=== PATIENT | female | born 1995 | race Caucasian/White ===

== ENCOUNTER 2023-09-18 11:31 | Emergency (ER) | payer MEDICAID, SELFPAY ==
[2023-09-18 12:10] VITALS: BP 114/81; PULSE 97; RESP 18; TEMP 36.4; O2SAT 97; BMI 26.1
--- NOTE | 2023-09-18 12:11 | EXP.UTC ---
Discharge Plan Disposition Patient Disposition: Home, Self-Care Condition: Good Prescriptions Prescriptions: New bzabtkzjsgfmtff-heuuheegu-FY [Bromfed DM] 2-30-10 mg/5 mL Syrup 5 ml PO Q6H PRN (Reason: Cough) Qty: 240 0RF oseltamivir [Tamiflu] 75 mg capsule 75 mg PO BID Qty: 10 0RF ondansetron 4 mg Tablet,Disintegrating 4 mg PO Q8H PRN (Reason: Nausea) Qty: 12 0RF Referrals Follow up/Referrals: Provider,Referral, MD [Primary Care Provider] - See instructions Activity Restrictions/Add. Instructions Additional Instructions/Restrictions: Drink plenty of fluids. Take tylenol or ibuprofen for pain or fever. Take the medications as directed. Follow up with your regular doctor. GO TO THE ER FOR ANY WORSENING SYMPTOMS Clinical Impressions Clinical Impression: Acute viral syndrome, Exposure to influenza Instructions Patient Instructions: DI for Influenza -- Adult, Oseltamivir Discharge ED Provider: Seymour Diaz [facility] General Stated complaint: nausea, headache, cough Time Seen by Provider: 09/18/23 12:11 History of Present Illness Provider Complaint: She states that she has had fever, chills, malaise, body aches, dry cough, and a headache for the past 1 day. Her and her mother both have had influenza over the past 5 days. Related Data Previous Rx's Medication Instructions Recorded rclserellnbmazg-warvvgwbpktetvu-NR 5 ml PO Q6H PRN Cough #240 mL 09/18/23 2 mg-30 mg-10 mg/5 mL oral syrup (Bromfed DM) ondansetron 4 mg disintegrating 4 mg PO Q8H PRN Nausea #12 tabs 09/18/23 tablet oseltamivir 75 mg capsule (Tamiflu) 75 mg PO BID #10 caps 09/18/23 Allergies Allergy/AdvReac Type Severity Reaction Status Date / Time No Known Allergies Allergy Verified 09/18/23 12:23 [facility] Disclaimer: The information contained in this section may have been updated after the patient was seen, as this information can be updated by other users. Social History Smoking Status: Never smoker alcohol intake: never current occupational status: employed Travel in the last 8 weeks: None ROS Obtained: Yes All systems reviewed & no additional complaints except as documented Constitutional Constitutional: Reports chills and Reports fever(s) Eyes Eyes: Denies eye discharge ENT Ears, Nose, Mouth, and Throat: Reports as per HPI Cardiovascular Cardiovascular: Denies chest pain Respiratory Respiratory: Denies chest congestion and Reports cough Gastrointestinal Gastrointestingal: Reports nausea; Denies abdominal pain, constipation, cramping, diarrhea or vomiting Musculoskeletal Musculoskeletal: Denies arthralgias Integumentary/Breasts Skin/Breast: Denies rash Neurologic Neurologic: Denies paresthesias Physical Exam General General appearance: alert and in no apparent distress Eye Eye exam: Present normal appearance, PERRL and EOMI ENT ENT exam: Present mucous membranes moist and normal external ear exam Expanded ENT Exam External ear exam: Present normal external inspection TM/Canal exam: Bilateral TM: erythema and bulging Nose exam: Absent sinus tenderness Nasal speculum exam: Bilateral: normal Mouth exam: Present normal external inspection; Absent drooling Teeth exam: Present normal inspection Throat exam: Present tonsillar erythema and tonsillomegaly Neck Neck exam: Present normal inspection, full ROM and trachea midline; Absent tenderness, lymphadenopathy or thyromegaly Chest Chest inspection: Present normal inspection and symmetric chest wall rise; Absent tenderness or rash Respiratory Respiratory exam: Present normal lung sounds bilaterally; Absent respiratory distress, wheezes, stridor or accessory muscle use Cardiovascular Cardiovascular exam: Present regular rate, normal rhythm and normal heart sounds Abdominal Exam Abdominal exam: Present soft; Absent distention, tenderness, guarding, rebound or rigidity Extremities Exam Extremities exam: Present normal inspection, full ROM and normal capillary refill; Absent tenderness or calf tenderness Back Exam Back exam: Present normal inspection and full ROM; Absent tenderness Neurological Exam Neurological exam: Present alert and oriented X3 Psychiatric Psychiatric exam: Present normal affect and normal mood Skin Skin exam: Present warm, dry, intact and normal color Lymphatic Lymphatic Findings: no adenopathy Medical Decision Making Medical Records Medical records reviewed: No I reviewed the patient's medical records. Elias Inquiry Pt receiving controlled substance: No Lab Data Lab results reviewed: Yes I reviewed the patient's lab results.
[2023-09-18 12:37] LABS: UTC Influenza A Antigen Negative (Negative); UTC Influenza B Antigen Negative (Negative)
[2023-09-18 12:51] VITALS: BP 114/81; PULSE 97; RESP 18; TEMP 36.4; O2SAT 97
== END 2023-09-18 12:51 | disposition home or self-care (01) ==
PROVIDERS: Emergency Provider Nurse Practitioner Family
DX: R51.9 Headache, unspecified (principal); R50.9 Fever, unspecified; R05.9 Cough, unspecified; R11.0 Nausea; M79.18 Myalgia, other site; B34.9 Viral infection, unspecified; Z20.828 Contact with and (suspected) exposure to other viral communicable diseases
CPT/HCPCS: 87804; 99204; 99212; G0463

== ENCOUNTER 2024-07-21 09:49 | Emergency (ER) | payer MEDICAID, SELFPAY ==
[2024-07-21 10:19] VITALS: BP 119/70; PULSE 95; RESP 18; TEMP 36.9; O2SAT 98; BMI 28.9
--- NOTE | 2024-07-21 10:23 | EXP.UTC ---
Discharge Plan Disposition Patient Disposition: Home, Self-Care Condition: Good Prescriptions Prescriptions: No Action ibcoxpacffpnlet-tgqdhpwog-WU [Bromfed DM] 2-30-10 mg/5 mL Syrup 5 ml PO Q6H PRN (Reason: Cough) Qty: 240 0RF oseltamivir [Tamiflu] 75 mg capsule 75 mg PO BID Qty: 10 0RF ondansetron 4 mg Tablet,Disintegrating 4 mg PO Q8H PRN (Reason: Nausea) Qty: 12 0RF Referrals Follow up/Referrals: Provider,Referral, MD [Primary Care Provider] - See instructions Activity Restrictions/Add. Instructions Additional Instructions/Restrictions: *Monitor Temp, Over the counter Motrin or Tylenol as directed/as needed Tylenol every 4 hours and Motrin every 6 hours (as long as your family doctor has told you that you can take it) for fever or pain. and straight to ER if unable to lower temp less than 101.0 after medication given *Warm salt water gargles may help to soothe the throat *Throat Lozenges? *Warm fluids like tea with honey may help to soothe the throat? *Sleep elevated *Humidifier/Vaporizer Follow up IMMEDIATELY for new or worsening symptoms or no Noticeable improvement over the next 48-72 hours. 911 for difficulty breathing or swallowing You were tested for today for COVID19 your test result should be back in the next 24 hours, you may check your results on the [facility] Clinical Impressions Clinical Impression: Viral syndrome Instructions Patient Instructions: DI for COVID-19 (Suspected or Confirmed ), DI for Viral Syndrome Print Language Print Language: Moroccan Discharge ED Provider: Ester Alberto [facility] [place] General Stated complaint: congestion, covid test Mode of Arrival: Ambulatory Source of Information: Patient Time Seen by Provider: 07/21/24 10:23 Description of Symptoms (Recalled from Triage Doc. by RN): COVID TESTING HEENT Symptoms (Recalled from RN notes): No Resp Symptoms (Recalled from RN notes): No Skin Symptoms (Recalled from RN notes): No MS Symptoms (Recalled from RN notes): No Functional Status (Recalled from RN notes): WNL History of Present Illness Provider Complaint: Patient states that she was around a family member on giving that has since tested positive for COVID States that she started feeling bad with nasal congestion and wants to get tested Related Data Previous Rx's ?Medication ?Instructions ?Recorded lagqqrbeftlbxgq-ljrvndeiwgdmatl-KL 5 ml PO Q6H PRN Cough #240 mL 09/18/23 2 mg-30 mg-10 mg/5 mL oral syrup (Bromfed DM) ondansetron 4 mg disintegrating 4 mg PO Q8H PRN Nausea #12 tabs 09/18/23 tablet oseltamivir 75 mg capsule (Tamiflu) 75 mg PO BID #10 caps 09/18/23 Allergies Allergy/AdvReac Type Severity Reaction Status Date / Time No Known Allergies Allergy Verified 09/18/23 12:23 Worker's Comp Is this a Worker's Comp case?: No [facility] Disclaimer: The information contained in this section may have been updated after the patient was seen, as this information can be updated by other users. Social History (Updated 09/18/23 @ 12:53 by Seymour Diaz APRN) Smoking Status: Never smoker alcohol intake: never current occupational status: employed Travel in the last 8 weeks: None ROS Obtained: Yes All systems reviewed & no additional complaints except as documented and Yes Systems reviewed as appropriate & no additional complaints except as documented Constitutional Constitutional: Reports system reviewed and no additional complaints, except as documented and Reports as per HPI ENT Ears, Nose, Mouth, and Throat: Reports system reviewed and no additional complaints, except as documented, Reports as per HPI and Reports nasal congestion Cardiovascular Cardiovascular: Reports system reviewed and no additional complaints, except as documented and Reports as per HPI Respiratory Respiratory: Reports system reviewed and no additional complaints, except as documented and Reports as per HPI Gastrointestinal Gastrointestingal: Reports system reviewed and no additional complaints, except as documented and as per HPI Physical Exam General General appearance: alert and in no apparent distress ENT ENT exam: Present normal exam, mucous membranes moist and TM's normal bilaterally Expanded ENT Exam Nose exam: Present other (clear drainage) Respiratory Respiratory exam: Present normal lung sounds bilaterally; Absent respiratory distress or wheezes Cardiovascular Cardiovascular exam: Present regular rate, normal rhythm and normal heart sounds Abdominal Exam Abdominal exam: Present soft and normal bowel sounds; Absent distention or tenderness Neurological Exam Neurological exam: Present alert, oriented X3 and normal gait Medical Decision Making Medical Records Screening: Per USPSTF and CDC recommendations, given the prevalence of disease in our region, it is our hospital?s policy to screen for HIV and viral Hepatitis for all patients aged 18 and over and those with ongoing risk factors. Elias Inquiry Pt receiving controlled substance: No Elias was queried for this patient: No Vital Signs: 07/21/24 10:19 Temperature 98.5 F Temperature Source Oral Pulse Rate [Left Radial] 95 H Respiratory Rate 18 Blood Pressure [Left Arm] 119/70 Blood Pressure Mean [Left Arm] 86 02 Sat by Pulse Oximetry 98 Orders (Tests/Meds): ORDERS Category Date Time Status Covid-19 Nasal PCR ([facility]) Routine Lab 07/21/24 09:54 Received
[2024-07-21 10:26] VITALS: BP 119/70; PULSE 95; RESP 18; TEMP 36.9
== END 2024-07-21 10:36 | disposition home or self-care (01) ==
PROVIDERS: Emergency Provider Nurse Practitioner
DX: B34.9 Viral infection, unspecified (principal); R09.81 Nasal congestion; Z20.822 Contact with and (suspected) exposure to COVID-19
CPT/HCPCS: 87635; 99212; G0381

== ENCOUNTER 2025-02-23 13:58 | Emergency (ER) | payer MEDICAID, SELFPAY ==
[2025-02-23 14:08] VITALS: BP 117/76; PULSE 83; RESP 15; TEMP 37.4; O2SAT 99; BMI 31.8
[2025-02-23 14:08] LABS: Microscopic, Urine URINE MICROSCOPIC (MICROSCOPIC)
--- NOTE | 2025-02-23 14:11 | HMH.EDGENADL ---
Discharge Plan Disposition Patient Disposition: Home, Self-Care Prescriptions Prescriptions: New nitrofurantoin monohyd/m-cryst 100 mg capsule 100 mg PO BID 5 Days Qty: 10 0RF Rx Instructions: must administer with a meal/food No Action lwuxnhauqzcscfk-oyklyfisg-DO [Bromfed DM] 2-30-10 mg/5 mL Syrup 5 ml PO Q6H PRN (Reason: Cough) Qty: 240 0RF oseltamivir [Tamiflu] 75 mg capsule 75 mg PO BID Qty: 10 0RF ondansetron 4 mg Tablet,Disintegrating 4 mg PO Q8H PRN (Reason: Nausea) Qty: 12 0RF Referrals Follow up/Referrals: Provider,Referral, MD [Primary Care Provider, Medical] - See instructions Activity Restrictions/Add. Instructions Additional Instructions/Restrictions: Return to your primary care doctor or to the emergency department if you have persistent or worsening fevers or if you are not getting better after antibiotics. Clinical Impressions Clinical Impression: Urinary tract infection Instructions Patient Instructions: DI for Urinary Tract Infection (UTI), DI for Urinary Tract Infection in Children Print Language Print Language: Spanish Discharge ED Provider: Jacob Caballero General Adult HPI General Chief complaint: Urogenital-Female Stated complaint: UTI/Bladder Infection Symptoms Time Seen by Provider: 02/23/25 14:03 Mode of Arrival: Ambulatory Source of Information: Patient Description of Symptoms (Recalled from ER Triage Doc. by RN): pt presents to ED with c/o trouble peeing, burning and pain with urination. symptoms began saturday History of Present Illness HPI narrative: Patient is a 29-year-old female presenting today with what she believes is another urinary tract infection as she had similar symptoms almost 10 years ago. States she has some dysuria urgency and frequency. Denies any other symptoms including back pain fevers etc. No other significant past medical history no known allergies. Related Data Previous Rx's ?Medication ?Instructions ?Recorded dnaqyeercxyznws-lnfypfwcbgrukvl-RQ 5 ml PO Q6H PRN Cough #240 mL 09/18/23 2 mg-30 mg-10 mg/5 mL oral syrup (Bromfed DM) ondansetron 4 mg disintegrating 4 mg PO Q8H PRN Nausea #12 tabs 09/18/23 tablet oseltamivir 75 mg capsule (Tamiflu) 75 mg PO BID #10 caps 09/18/23 nitrofurantoin 100 mg PO BID 5 days #10 caps 02/23/25 monohydrate/macrocrystals 100 mg capsule Allergies Allergy/AdvReac Type Severity Reaction Status Date / Time No Known Allergies Allergy Verified 09/18/23 12:23 [facility] Disclaimer: The information contained in this section may have been updated after the patient was seen, as this information can be updated by other users. Social History (Updated 09/18/23 @ 12:53 by Seymour Diaz APRN) Smoking Status: Current every day smoker alcohol intake: never current occupational status: employed Travel in the last 8 weeks?: None Have you lived/traveled outside [place] in past 30 days?: No Contact w/someone who lives/traveled outside [place] past 30 days?: No Exposure to someone with infectious disease in past 14 days?: No Do you have a fever (greater than 100.4 F or 38 C)?: No Have you tested positive for COVID-19?: No Exposed to someone with COVID-19 in past 14 days?: No Do you have a sore throat?: No Do you have a cough?: No Do you have any weakness?: No Do you have any diarrhea?: No Are you experiencing any unusual bleeding?: No Do you have any muscle aches/pain?: No Do you have any abdominal pain?: No Are you experiencing loss of taste or smell?: No ROS Obtained: Yes All systems reviewed & no additional complaints except as documented Physical Exam General General appearance: alert and in no apparent distress Respiratory Respiratory exam: Present normal lung sounds bilaterally; Absent respiratory distress Cardiovascular Cardiovascular exam: Present regular rate and normal rhythm Abdominal Exam Abdominal exam: Present soft; Absent distention Back Exam Back exam: Absent CVA tenderness (R) or CVA tenderness (L) Neurological Exam Neurological exam: Present alert and oriented X3 Medical Decision Making Medical Records Screening: Per USPSTF and CDC recommendations, given the prevalence of disease in our region, it is our hospital?s policy to screen for HIV and viral Hepatitis for all patients aged 18 and over and those with ongoing risk factors. Elias Inquiry Pt receiving controlled substance: No Vital Signs: 02/23/25 14:08 Temperature 99.3 F Temperature Source Oral Pulse Rate [Left Radial] 83 Respiratory Rate 15 Blood Pressure [Right Arm] 117/76 Blood Pressure Mean [Right Arm] 89 Blood Pressure Source [Right Arm] Automatic Cuff Blood Pressure Position [Right Arm] Sitting 02 Sat by Pulse Oximetry 99 Oxygen Delivery Method Room Air Lab Data Lab results reviewed: Yes I reviewed the patient's lab results. Lab Results 02/23/25 14:04: Urine Color Yellow, Urine Appearance Clear, Urine pH 6.5, Ur Specific [place] 1.025, Urine Protein 3+ A, Urine Glucose (UA) Negative, Urine Ketones Trace, Urine Blood 3+ A, Urine Nitrate Positive A, Urine Bilirubin 1+ A, Urine Urobilinogen 0.2, Ur Leukocyte Esterase 2+ A, Urine RBC None, Urine WBC Tntc, Urine Bacteria 4+, Urine HCG, Qual Negative Orders (Tests/Meds): ORDERS Category Date Time Status HIV Combo Stat Lab 02/23/25 14:11 Ordered Hepatitis C Ab Qual. W/ RFX Stat Lab 02/23/25 14:11 Ordered UA [Urinalysis and Microscopic] Stat Lab 02/23/25 14:04 Completed Urine , HCG Qual. Stat Lab 02/23/25 14:04 Completed Urine Culture Stat Micro 02/23/25 14:04 Received Medical Decision Narrative: 29-year-old well-appearing female presented with symptoms concerning for possible urinary tract infection urinalysis and urine test pending will reassess shortly. Reassessment urinalysis is positive for UTI will treat for uncomplicated UTI with nitrofurantoin this was explained to the patient she was discharged in stable condition. Critical Care Critical Care Time Critical Care Time: No
[2025-02-23 14:13] LABS: Color,Urine YELLOW (Yellow); Glucose,Urine (UA) Negative (Negative); Ketones,Urine TRACE (Negative); Leukocyte Esterase,Urine 2+ (Negative); PH,Urine 6.5 (5.0-8.5); Protein,Urine 3+ (Negative); Specific Gravity, Urine 1.025 (1.005-1.030); Urobilinogen,Urine 0.2 EU/dl (0.2)
[2025-02-23 14:18] LABS: Urine Pregnancy, HCG Qual. Negative (Negative)
[2025-02-23 14:27] LABS: Bilirubin,Urine 1+ (Negative)
[2025-02-23 14:29] LABS: Bacteria,Urine 4+ /lpf; WBC,Urine TNTC #/hpf (0-3)
[2025-02-23 14:45] VITALS: BP 111/70; PULSE 80; RESP 16; TEMP 36.7; O2SAT 99
== END 2025-02-23 14:46 | disposition home or self-care (01) ==
PROVIDERS: Emergency Provider Student in an Organized Health Care Education/Training Program
DX: N39.0 Urinary tract infection, site not specified (principal); R30.0 Dysuria; R39.15 Urgency of urination; F17.210 Nicotine dependence, cigarettes, uncomplicated
CPT/HCPCS: 81001; 81025; 87077; 87086; 99283